=== PATIENT | female | born 1970 | race Caucasian/White ===

== ENCOUNTER 2019-09-04 18:30 | Emergency (ER) | payer MEDICAID ==
[~2019-09-04] VITALS: Ht 162.6 cm; Wt 86.2 kg
[2019-09-04] MEDS ORDERED: TAPAZOLE10 MG PO (19:00)
[2019-09-04 19:29] LABS: ABSOLUTE BASOPHILS 0.1 thou/uL (0.0-0.2); ABSOLUTE EOSINOPHILS 0.3 thou/uL (0.0-0.7); ABSOLUTE LYMPHOCYTES 1.7 thou/uL (0.8-5.3); ABSOLUTE MONOCYTES 0.6 thou/uL (0.0-1.2); ABSOLUTE NEUTROPHILS 5.4 thou/uL (1.6-8.1); BASOPHILS 0.7 %; EOSINOPHILS 4.2 %; HEMOGLOBIN 13.3 gm/dL (12.0-15.0); MCH 28.5 pg (26.0-34.0); MCHC 34.1 g/dL (28.0-37.0); MCV 83.6 fL (80.0-100.0); MONOCYTES 7.2 %; MPV 9.7 fl. (7.2-11.1); NUCLEATED RBCS 0 /100WBC; PLATELET COUNT* 220 thou/uL (150-400); POLYS 66.9 %; RBC 4.67 mil/uL (4.20-5.00); RDW-CV 14.1 % (10.5-14.5)
[2019-09-04 19:44] LABS: CALCIUM 8.6 mg/dL (8.5-10.1); CREATININE 0.7 mg/dL (0.6-1.3); POTASSIUM 3.8 mmol/L (3.5-5.1)
[2019-09-04 19:49] LABS: ALBUMIN 3.7 g/dL (3.4-5.0); TOTAL BILIRUBIN 0.2 mg/dL (<0.1-1.0); TOTAL PROTEIN 7.4 g/dL (6.4-8.2)
[2019-09-04 19:54] LABS: INFLUENZA A ANTIGEN Negative (Negative); INFLUENZA B ANTIGEN Negative (Negative)
[2019-09-04] MEDS ORDERED: VIRTUSSIN AC L118 ML PO (19:59)
[2019-09-04 20:51] VITALS: BP 142/80
== END 2019-09-04 20:52 | disposition home or self-care (01) ==
LOC: M.ERS 18:30
PROVIDERS: Physician Assistant
DX: J06.9 Acute upper respiratory infection, unspecified (principal); I48.91 Unspecified atrial fibrillation; F17.210 Nicotine dependence, cigarettes, uncomplicated

== ENCOUNTER 2019-12-01 10:43 | Emergency (ER) | payer MEDICAID ==
[~2019-12-01] VITALS: Ht 162.6 cm; Wt 86.2 kg
[~2019-12-01 10:43] MED LIST: TAPAZOLE10 MG PO; VIRTUSSIN AC L118 ML PO
[2019-12-01] MEDS ORDERED: TAPAZOLE5 MG PO (11:03)
[2019-12-01] MEDS ORDERED: XANAX 0.5 MG0.5 MG PO (11:20)
[2019-12-01 11:31] LABS: ABSOLUTE BASOPHILS 0.1 thou/uL (0.0-0.2); ABSOLUTE EOSINOPHILS 0.2 thou/uL (0.0-0.7); ABSOLUTE MONOCYTES 0.3 thou/uL (0.0-1.2); ABSOLUTE NEUTROPHILS 5.6 thou/uL (1.6-8.1); BASOPHILS 0.9 %; EOSINOPHILS 2.6 %; HEMATOCRIT 40.7 % (37.0-47.0); HEMOGLOBIN 14.2 gm/dL (12.0-15.0); MCH 29.2 pg (26.0-34.0); MCHC 34.8 g/dL (28.0-37.0); MCV 83.9 fL (80.0-100.0); MONOCYTES 4.2 %; MPV 9.5 fl. (7.2-11.1); NUCLEATED RBCS 0 /100WBC; PLATELET COUNT* 220 thou/uL (150-400); POLYS 78.3 %; RBC 4.85 mil/uL (4.20-5.00); RDW-CV 13.9 % (10.5-14.5); WBC 7.1 thou/uL (4.0-11.0)
[2019-12-01 11:38] LABS: URINE BILIRUBIN NEGATIVE (Negative); URINE BLOOD NEGATIVE (Negative); URINE CLARITY CLEAR; URINE COLOR YELLOW; URINE GLUCOSE-RANDOM NEGATIVE (Negative); URINE KETONES NEGATIVE (Negative); URINE LEUKOCYTES-REFLEX NEGATIVE (Negative); URINE NITRITE-REFLEX NEGATIVE (Negative); URINE PROTEIN NEGATIVE (Negative); URINE SPECIFIC GRAVITY <= 1.005 (1.005-1.030); URINE UROBILINOGEN 0.2 E.U./dl (0.2-1.0)
[2019-12-01 11:41] LABS: CALCIUM 8.5 mg/dL (8.5-10.1); CREATININE 0.8 mg/dL (0.6-1.3); POTASSIUM 3.7 mmol/L (3.5-5.1)
[2019-12-01 11:58] LABS: ALBUMIN 3.9 g/dL (3.4-5.0); TOTAL BILIRUBIN 0.4 mg/dL (<0.1-1.0); TOTAL PROTEIN 7.4 g/dL (6.4-8.2)
[2019-12-01 11:59] LABS: AMP/METHAMP Negative (Negative); BARBITURATES Negative (Negative); BENZODIAZEPINES Negative (Negative); COCAINE Negative (Negative); METHADONE Negative (Negative); OPIATES Negative (Negative); PCP Negative (Negative); THC Negative (Negative)
[2019-12-01 12:28] VITALS: BP 122/64
--- NOTE | 2019-12-01 15:54 | EKG ---
[place] [address] ELECTROCARDIOGRAM REPORT Name: TJ PINEDA Room: [facility]#: [id number] Admission: 12/01/19 Attend Phys: Discharge: 12/01/19 Date of : 66 Date of Service: 12/01/19 1125 Report #: [id number] THIS REPORT FOR: //name// [facility] ED Test Date: 2019-12-01 Test Time: 11:25:02 Pat Name: TJ PINEDA Department: Room: Gender: Pan Pusher: : 1970 Requested By: Jt Rose Order Number: [id number] MD: Jose Marcus Measurements Intervals [place] Rate: 59 P: 47 OR: 197 QRS: 116 QRSD: 110 T: 65 QT: 424 QTc: 420 Interpretive Statements Sinus rhythm Left atrial enlargement Right axis deviation Low voltage, precordial leads No previous ECG available for comparison Electronically Signed On 12-01-2019 15:53:39 CDT by Jose Marcus [email or web address] <ELECTRONICALLY SIGNED> By: Jose Marcus MD, [facility] 12/01/19 1553 1125 1125 Jose Marcus MD, [facility] /EPI
== END 2019-12-01 12:30 | disposition home or self-care (01) ==
LOC: M.ERS 10:43
PROVIDERS: Family Medicine
DX: F41.0 Panic disorder [episodic paroxysmal anxiety] (principal); F17.200 Nicotine dependence, unspecified, uncomplicated; I48.91 Unspecified atrial fibrillation; E05.90 Thyrotoxicosis, unspecified without thyrotoxic crisis or storm; Z79.899 Other long term (current) drug therapy

== ENCOUNTER → 2020-03-22 | Outpatient (CLI) | payer MEDICAID ==
[~2020-03-22] MED LIST changes: +TAPAZOLE5 MG PO; +XANAX 0.5 MG0.5 MG PO
== END ==
LOC: M.ULTRA 07:23
PROVIDERS: ATTEND Nurse Practitioner Family
DX: R10.10 Upper abdominal pain, unspecified (principal)

== ENCOUNTER 2020-06-20 12:26 | Emergency (ER) | payer MEDICAID ==
[~2020-06-20] VITALS: Ht 165.1 cm; Wt 90.7 kg
[2020-06-20] MEDS ORDERED: METHIMAZOLE5 MG PO (12:45)
[2020-06-20] MEDS ORDERED: DOXYCYCLINE 10100 M2 PO (12:46)
[2020-06-20] MEDS ORDERED: CEFDINIR300 MG PO (12:47)
[2020-06-20 13:19] LABS: ABSOLUTE BASOPHILS 0.1 thou/uL (0.0-0.2); ABSOLUTE EOSINOPHILS 0.2 thou/uL (0.0-0.7); ABSOLUTE LYMPHOCYTES 1.2 thou/uL (0.8-5.3); ABSOLUTE MONOCYTES 0.4 thou/uL (0.0-1.2); ABSOLUTE NEUTROPHILS 5.6 thou/uL (1.6-8.1); BASOPHILS 0.7 %; EOSINOPHILS 2.9 %; HEMATOCRIT 40.9 % (37.0-47.0); HEMOGLOBIN 13.7 gm/dL (12.0-15.0); LYMPHOCYTES 16.3 %; MCH 27.8 pg (26.0-34.0); MCHC 33.5 g/dL (28.0-37.0); MCV 82.9 fL (80.0-100.0); MONOCYTES 5.4 %; MPV 9.1 fl. (7.2-11.1); NUCLEATED RBCS 0 /100WBC; PLATELET COUNT* 230 thou/uL (150-400); POLYS 74.7 %; RBC 4.93 mil/uL (4.20-5.00); RDW-CV 13.2 % (10.5-14.5); WBC 7.5 thou/uL (4.0-11.0)
[2020-06-20 13:29] LABS: CALCIUM 9.1 mg/dL (8.5-10.1); CREATININE 0.7 mg/dL (0.6-1.3); POTASSIUM 4.1 mmol/L (3.5-5.1)
[2020-06-20 13:39] LABS: ALBUMIN 3.7 g/dL (3.4-5.0); TOTAL BILIRUBIN 0.3 mg/dL (<0.1-1.0); TOTAL PROTEIN 7.4 g/dL (6.4-8.2)
[2020-06-20] MEDS ORDERED: IBUPROFEN 600600 M1 PO (15:23)
[2020-06-20] MEDS ORDERED: FLEXERIL PO (15:23)
[2020-06-20 15:32] VITALS: BP 125/67
--- NOTE | 2020-06-20 16:34 | EKG ---
[place] [address] ELECTROCARDIOGRAM REPORT Name: EDWIN,TJ Harvey Room: [facility]#: [id number] Admission: 06/20/20 Attend Phys: Discharge: 06/20/20 Date of : 66 Date of Service: 06/20/20 1317 Report #: [id number] THIS REPORT FOR: //name// [facility] ED Test Date: 2020-06-20 Test Time: 13:17:09 Pat Name: TJ PINEDA Department: Room: Gender: Qa Lead: : 1970 Requested By: Yokasta Roberts Order Number: [id number] MD: Jose Marcus Measurements Intervals [place] Rate: 61 P: 48 WV: 197 QRS: 119 QRSD: 106 T: 68 QT: 417 QTc: 420 Interpretive Statements Sinus rhythm Probable left atrial enlargement Right axis deviation Low voltage, precordial leads ST elevation suggests early repolarization Compared to ECG 12/01/2019 11:25:02 no change Electronically Signed On 06-20-2020 16:34:49 [employer] by Jose Marcus [email or web address] <ELECTRONICALLY SIGNED> By: Jose Marcus MD, [facility] 06/20/20 1634 1317 1317 Jose Marcus MD, [facility] /EPI
== END 2020-06-20 15:33 | disposition home or self-care (01) ==
LOC: M.ERS 12:26
PROVIDERS: Nurse Practitioner Family
DX: M94.0 Chondrocostal junction syndrome [Tietze] (principal); M54.6 Pain in thoracic spine; F17.210 Nicotine dependence, cigarettes, uncomplicated; I48.91 Unspecified atrial fibrillation; E03.9 Hypothyroidism, unspecified

== ENCOUNTER → 2021-02-19 | Outpatient (CLI) | payer MEDICAID ==
[~2021-02-19] MED LIST changes: +CEFDINIR300 MG PO; +DOXYCYCLINE 10100 M2 PO; +FLEXERIL PO; +IBUPROFEN 600600 M1 PO; +METHIMAZOLE5 MG PO
== END ==
LOC: M.ULTRA 02-06 10:00
PROVIDERS: ATTEND Nurse Practitioner Family
DX: I86.8 Varicose veins of other specified sites (principal)